=== PATIENT | male | born 1965 | race Caucasian/White ===

== ENCOUNTER 2019-08-18 20:02 | Emergency (ER) | payer MEDICAID ==
[~2019-08-18] VITALS: Ht 172.7 cm; Wt 86.2 kg
[2019-08-18 22:45] VITALS: BP 118/83
== END 2019-08-18 23:48 | disposition home or self-care (01) ==
LOC: ER 20:04
DX: S62.610A Displaced fracture of proximal phalanx of right index finger, initial encounter for closed fracture (principal); W54.1XXA Struck by dog, initial encounter; Y93.89 Activity, other specified; Y92.89 Other specified places as the place of occurrence of the external cause; Y99.8 Other external cause status
CPT/HCPCS: 29125; 73130

== ENCOUNTER 2020-11-29 03:41 | Emergency (ER) | payer MEDICAID ==
[~2020-11-29] VITALS: Ht 172.7 cm; Wt 108.9 kg
== END 2020-11-29 04:45 | disposition left against medical advice (07) ==
LOC: EDUNIT# 03:41 → EDBD 03:41 → ER 03:46
DX: Z02.89 Encounter for other administrative examinations (principal); Z53.21 Procedure and treatment not carried out due to patient leaving prior to being seen by health care provider